=== PATIENT | female | born 1975 | race African-American/Black ===

== ENCOUNTER 2018-06-18 02:25 | Inpatient (IN) | payer MEDICAID ==
[2018-06-18] VITALS (7 sets, daily range): BP systolic 111–171; BP diastolic 66–102; Ht 160 cm; Wt 97.0 kg
[~2018-06-18] VITALS: Ht 160 cm; Wt 97.0 kg
--- NOTE | ~2018-06-18 | OP ---
PATIENT NAME: DIMITRI GARCIA MEDICAL RECORD: [id number] :77 LOCATION:D.M2 D.2120 ADMISSION DATE:06/18/18 SURGEON: TIFFANIE OSORIO MD DATE OF OPERATION: 06/20/2018 PROCEDURES: 1. Left heart catheterization. 2. Selective coronary angiography. 3. Left ventriculogram. INDICATION: Cardiomyopathy, angina, hypertension, elevated troponin. PROCEDURE IN DETAIL: After informed consent was obtained and after a detailed description of the risks, benefits as well as alternative therapies, the patient elected to proceed with angiogram and heart catheterization. The right femoral area was prepped and draped in normal sterile fashion. Right femoral artery was cannulated via modified Seldinger technique with placement of 5-Macedonian sheath. All catheters exchanged through this sheath. FINDINGS: Left ventriculogram performed in standard 30-degree SINGH view reveals markedly depressed ejection fraction of 25%. SELECTIVE CORONARY ANGIOGRAPHY: Left main, left anterior descending, left circumflex, right coronary are all smooth-walled vessels with no angiographic evidence of coronary artery disease. OVERALL IMPRESSION: Nonischemic cardiomyopathy. No evidence of coronary artery disease. Center medical management and treatment of the cardiomyopathy. TRANSINT:[id number] Voice Confirmation ID: [id number] DOCUMENT ID: [id number] TIFFANIE OSORIO MD at 1235 CC: [id number] DICTATION DATE: 06/20/18 172 HEATER PLANER OPERATOR: 06/20/182048 ADM IN [place] [id number] [place] [address]
--- NOTE | ~2018-06-18 | MORECARE ---
CASE MANAGEMENT DISCHARGE SUMMARY PATIENT: DIMITRI GARCIA UNIT: [id number] ADM DATE: 06/18/18 AGE: 43 : 76 SEX: F ROOM/BED: D.2120 AUTHOR: NO SMITH PHYSICIAN: REFERRING PHYSICIAN: FREEDOM MCINTOSH MD DATE OF SERVICE: 06/21/18 Discharge Plan Patient Name: DIMITRI GARCIA Facility: [facility]:[place] : 1975 Planned Disposition: Home Anticipated Discharge Date: 06/22/18 Discharge Date: Expected LOS: 4 Initial Reviewer: [email or web address] Initial Review Date: 06/21/2018 Generated: 06/21/18 4:42 pm DCPIA - Discharge Planning Initial Assessment Updated by [email or web address]: Wally Mathews on 06/21/18 3:38 pm * Is the patient Alert and Oriented? Yes * How many steps to enter\exit or inside your home? NONE * PCP DR. EBONY LAYNE [place] * Pharmacy [facility] [place] * Preadmission Environment Home with Family * ADLs Independent * Equipment None * Other Equipment NO MEDICAL EQUIPMENT PROVIDER PREFERENCE * List name and contact numbers for known caregivers / representatives who currently or will assist patient after discharge: DARRICK MEYER, AUNT, CELL [phone] OR HOME [phone] * Verbal permission to speak to the caregivers and representatives has been obtained from the patient. N/A * Community resources currently utilized None * Please name any agencies selected above. NONE * Additional services required to return to the preadmission environment? No * Can the patient safely return to the preadmission environment? Yes * Has this patient been hospitalized within the prior 30 days at any hospital? No Patient Name: DIMITRI GARCIA Page 74023 at 1542 All edits/amendments must be made on the electronic document DICTATION DATE: 06/21/181541 TECHNICAL SYSTEM ANALYST: AISHA 06/21/18 154 RPT#: [id number] DC DATE: STATUS: ADM IN [address] [place] [address] END OF REPORT
--- NOTE | ~2018-06-18 | EC ---
PATIENT:DIMITRI GARCIA DATE OF SERVICE: 06/18/18 SEX: F MEDICAL RECORD: [id number] DATE OF : [birth year] LOCATION:D. D.212 AGE OF PATIENT: 43 ADMISSION DATE: 06/18/18 REFERRING PHYSICIAN: INTERPRETING PHYSICIAN: RANDI BOWLING MD ECHOCARDIOGRAM REPORT ECHO CHARGES 4 ECHO COMPLETE Date: 06/18/18 CLINICAL DIAGNOSIS: CHF ECHOCARDIOGRAPHIC MEASUREMENTS (adult normal given) AC root (d.<3.7cm) 2.3 cm LV Septum d (<1.2 cm> 1.0 cm Valve Excursion 1.7 cm LV Septum (systole) 1.1 cm Left Atria (s.<4.0cm> 4.1 cm LVPW d(<1.2cm) 1.3 cm RV (d.<2.3cm) 3.0 cm LVPW (sytole) 1.7 cm LV diastole(<5.6CM) 5.9 cm MV E-F(>70mm/sec) cm LV systole 4.9 cm LVOT Diameter 1.8 cm MV exc.(>10mm) cm Est.ejection fraction (50-75%) % DOPPLER: LVIT cm/sec A 46 cm/sec E 117 cm/sec LA cm/sec RVSP 35.7 mmHg LVOT 124 cm/sec AOP1/2T m/s Asc. Ao 156 cm/sec RVOT 67 cm/sec RA cm/sec PA 89 cm/sec AV Gradient Peak 9.7 mmHg AV Mean 5.7 mmHg AV Area 2.0 cm MV Gradient Peak 7.7 mmHg MV Mean 3.0 mmHg MV Area cm COMMENTS: Nursing Educator: Benito MATAMOROS Senior Systems Programmer: 4 Dr. Bowling TAPE# Pericardial Effusion N DATE OF SERVICE: PROCEDURE: Transthoracic echocardiogram. FINDINGS: 1. The left ventricle is mildly dilated. There is evidence of left ventricular hypertrophy. Inflow characteristics shows pseudonormalization. The left ventricular cavity was difficult to visualize in its entirety. There appears to be slight wall motion abnormalities. The posterior and lateral left ventricle appeared to be hyperdynamic in certain segments. The anterior septal wall ECHOCARDIOGRAM REPORT [id number] DIMITRI GARCIA motion appears to be slightly hypokinetic. Resultant ejection fraction is mildly depressed in the 45% to 50% range. 2. The left atrium is mildly dilated. 3. The mitral valve is grossly normal. 4. The tricuspid valve has mild tricuspid regurgitation, RVSP of 35 mmHg. 5. The right ventricle is mildly dilated. 6. The right atrium is moderately dilated. 7. The pulmonic valve is not well visualized, but grossly normal. There is no pericardial effusion. There is no evidence of pericardial tamponade. There is no obvious thrombus. The interatrial septum does appear to be highly mobile, but there is no evidence of patent foramen ovale or an atrial septal defect. TRANSINT:[id number] Voice Confirmation ID: [id number] DOCUMENT ID: [id number] RANDI BOWLING MD at 0916 CC: [id number] DICTATION DATE: 06/19/1855 CHARGE WEIGHER: 06/19/18 1027 DIS IN 06/26/18 [facility] [address] [place] [address]
--- NOTE | ~2018-06-18 | MORECARE ---
CASE MANAGEMENT DISCHARGE SUMMARY PATIENT: DIMITRI GARCIA UNIT: [id number] ADM DATE: 06/18/18 AGE: 43 : 77 SEX: F ROOM/BED: D.5630 AUTHOR: LUISDOC PHYSICIAN: REFERRING PHYSICIAN: FREEDOM MCINTOSH MD DATE OF SERVICE: 06/26/18 Discharge Plan Patient Name: DIMITRI GARCIA Facility: [facility]:[place] : 1975 Planned Disposition: Home Anticipated Discharge Date: 06/22/18 Discharge Date: 06/26/2018 Expected LOS: 4 Initial Reviewer: [email or web address] Initial Review Date: 06/21/2018 Generated: 06/26/18 7:15 pm Comments DCP- Discharge Planning Updated by [email or web address]: Tessa She on 06/26/18 5:[address] PATIENT FOR DISCHARGE TO HOME THIS PM. CM REVIEWED DISCHARGE. SHE HAS NINE NEW MEDICATIONS ORDERED. SHE HAS [place] MED[place]ID. HER PCP IS DR EBONY LAYNE IN [place]. [facility] IS HER PHARMACY IN [place]. PATIENT MAY NEED EXTENSION OF MEDICAID SLOTS. DISCUSSED WITH HERNESTO, THE PRIMARY NURSE. THE PATIENT DOES NOT KNOW HOW MANY SLOTS SHE HAS. SHE DID NOT SEEM TO UNDERSTAND PER THE NURSE. HERNESTO WILL REVIEW DISCHARGE MEDS WITH THE FAMILY. CM WILL NOTIFY DR LAYNE'S OFFICE IN THE AM. WILL FAX DISCHARGE SUMMARY W/ MED LIST FOR HIS FOLLOW UP WITHNTHE PATIENT AND PHARMACY. DCP- Discharge Planning Updated by [email or web address]: Wally Mathews on 06/21/18 3:[address] Patient Name: DIMITRI GARCIA Admission Status: ER Accout number: [id number] Admission Date: 06-18-2018 : 1975 Admission Diagnosis: Attending: FREEDOM MCINTOSH Current LOS: 3 Anticipated DC Date: 06-22-2018 Planned Disposition: Home Primary Insurance: MEDICAID [place] Discharge Planning Comments: CM RECEIVED OXYGEN TESTING, PT WAS 99% AT REST ON ROOM AIR AND DROPPED TO 98% ON ROOM AIR DURING EXERTION. CM MET WITH PT IN ROOM TO DISCUSS DISCHARGE PLANNING AND NEEDS. PT REPORTS LIVING AT HOME INDEPENDENTLY WITH SPOUSE AND 10 YEAR OLD SON. PT HAS NO MEDICAL EQUIPMENT AND NO OUTSIDE SERVICES ASSISTING IN THE HOME. CM DISCUSSED AVAILABILITY OF HOME HEALTH, REHAB SERVICES AND MEDICAL EQUIPMENT. PT REPORTS BEING INDEPENDENT IN HOSPITAL ROOM AND UP TO BATHROOM NEEDED; PT DENIES DISCHARGE NEEDS AT THIS TIME, REPORTS SHE WILL TRY TO GET HER AUNT TO PICK HER UP FOR DISCHARGE HOME. PT PLANS TO DISCHARGE HOME WITH FAMILY, FAMILY TO TRANSPORT HOME; PT DENIES DISCHARGE NEEDS AT THIS TIME. CM TO FOLLOW AND ASSIST NEEDED. Chief Growth Officer: Wally Mathews DCPIA - Discharge Planning Initial Assessment Updated by [email or web address]: Wally Mathews on 06/21/18 3:38 pm * Is the patient Alert and Oriented? Yes * How many steps to enter\exit or inside your home? NONE * PCP DR. EBONY LAYNE [place] * Pharmacy [facility] IN [place] * Preadmission Environment Home with Family * ADLs Independent * Equipment None * Other Equipment NO MEDICAL EQUIPMENT PROVIDER PREFERENCE * List name and contact numbers for known caregivers / representatives who currently or will assist patient after discharge: DARRICK MEYER, AUNT, CELL [phone] OR HOME [phone] * Verbal permission to speak to the caregivers and representatives has been obtained from the patient. N/A * Community resources currently utilized None * Please name any agencies selected above. NONE * Additional services required to return to the preadmission environment? No * Can the patient safely return to the preadmission environment? Yes * Has this patient been hospitalized within the prior 30 days at any hospital? No Last DP export: 06/21/18 3:51 Patient Name: DIMITRI GARCIA Page 10564 at 1815 All edits/amendments must be made on the electronic document DICTATION DATE: 06/26/181814 CHEMISTRY RESEARCH ASSISTANT: AISHA 06/26/181814 RPT#: [id number] DC DATE:06/26/18 STATUS: DIS IN [facility] [address] [place] [address] END OF REPORT
--- NOTE | ~2018-06-18 | HEMODYNAMI ---
PATIENT:DIMITRI GARCIA MEDICAL RECORD: [id number] : 77 [id number] ADMISSION DATE: 06/18/18 Generatedon:06/20/201817:28 Patient name: DIMITRI GARCIA Patient #: [id number] SSN: : 1975 Date of study: 06/20/2018 Page: Of Hemodynamic Procedure Report Patient Data Patient Demographics Procedure consent was obtained First Name: DIMITRI Gender: Female Last Name: RADHA : 1975 Patient #: [id number] Age: 43 year(s) Race: Black Additional ID: [id number] Contact details Address: [address] [place] [address] [address]REET State: [place] City: [place] Zip code: [address] Admission Admission Data Admission Date: 06/18/2018 Admission Time: 3:57 Room #: D.2120 Procedure Procedure Types Cath Procedure Diagnostic Procedure LHC LHC w/Coronaries Procedure Description Procedure Date Procedure Date: 06/20/2018 Procedure Start Time: 17:11 Procedure End Time: 17:19 Procedure Staff Name Function Long Zepeda MD Performing Physician Veronica Clemons RT Monitor Eleni Byers RT Scrub Josh Woodward RN Nurse Procedure Data Cath Procedure Fluoroscopy Diagnostic fluoroscopy Total fluoroscopy Time: 0.7 time: 0.7 min min Diagnostic fluoroscopy Total fluoroscopy dose: 199 dose: 199 mGy mGy Contrast Material Contrast Material Type Amount (ml) Isovue 300 30 Entry Location Entry Primary Successful Side Size Upsize Upsize Entry Closure Succes sful Closure Location (Fr) 1 (Fr) 2 (Fr) Remarks Device Remarks Femoral Right 5 Fr Exoseal artery Estimated blood loss: 5 ml Diagnostic catheters Device Type Used For End Catheter Placement MULTIPACK Pigtail 5 Fr Multi-vessel catheter Angiography MULTIPACK JL 4.0 5Fr Left Coronary catheter Angiography MULTIPACK 3DRC 5Fr Right Coronary catheter Angiography Procedure Complications No complications Procedure Medications Medication Administration Route Dosage 0.9% NaCl I.V. 100 ml/hr Oxygen etCO2 Nasal cannula 2 l/min Lidocaine 2% added to field 20 Heparin Flush Bag added to field 2 bags (1000units/500ml NS) Versed I.V. 2 mg Fentanyl I.V. 100 mcg Lopressor I.V. 10 mg Versed I.V. 2 mg Versed I.V. 1 mg Hemodynamics Rest Heart Rate: 111 (bpm) Pressure Samples Time Site Value (mmHg) Purpose Heart Use Rate(bpm) 17:14 LV 28/2,7 Snapshot 121 Snapshots Pre Cath Intra NCS Post Cath Vital Signs Time Heart Resp SPO2 etCO2 NIBP (mmHg) Rhythm Pain Sedation Rate (ipm) (%) (mmHg) Status Level (bpm) 16:59:53 125 25 99 33 116/102(114) NSR 0 (11) 10(A) , No pain 17:06:16 124 42 99 33.7 117/103(115) NSR 0 (11) 10(A) , No pain 17:09:45 124 32 94 35.3 137/85(99) NSR 0 (11) 10(A) , No pain 17:13:57 122 23 95 35.3 128/101(111) NSR 0 (11) 10(A) , No pain 17:23:30 90 22 45 Time NSR 0 (11) 10(A) Exceeded , No pain 17:27:18 91 24 48.8 137/85(0) NSR 0 (11) 10(A) , No pain Medications Time Medication Route Dose Verified Delivered Reason Notes Eff ectiveness by by 16:44:15 0.9% NaCl I.V. 100 Longdemond Sageie used for ml/hr Katelyn Woodward RN procedure 16:44:24 Oxygen etCO2 2 Long Sageie used for Nasal l/min Katelyn Woodward RN procedure cannula 16:44:32 Lidocaine 2% added 20ml Long Alves for local to vial Katelyn Zepeda MD anesthetic field 16:44:36 Heparin Flush added 2 Long Long used for Bag to bags Katelyn Zepeda MD procedure (1000units/500ml field NS) 17:06:55 Versed I.V. 2 mg Long Sageie for Katelyn Woodward RN sedation 17:07:03 Fentanyl I.V. 100 Long Sageie for mcg Tauth MD Woodward RN sedation 17:11:59 Versed I.V. 2 mg Long Moreno for Katelyn Woodward RN sedation 17:15:21 Versed I.V. 1 mg Long Moreno for Katelyn Woodward RN sedation 17:16:49 Lopressor I.V. 10 mg Long Moreno Per Katelyn Woodward RN physician Procedure Log Time Note 16:34:49 Informed consent obtained and on chart 16:34:52 Diagnostic Cath Status : Elective 16:39:49 Eleni Zeeshan RT(R) sent for patient. Start room use. 16:39:50 Time tracking: Regular hours (M-F 7:00 - 5:00) 16:39:54 Plan of Care:Hemodynamics will remain stable., Cardiac rhythm will remain stable., Comfort level will be maintained., Respiratory function will remain adequate., Patient/ family verbilizes understanding of procedure., Procedure tolerated without complication., Recovers from procedure without complications.. 16:44:15 0.9% NaCl 100 ml/hr I.V. was administered by Josh Woodward RN; used for procedure; 16:44:24 Oxygen 2 l/min etCO2 Nasal cannula was administered by Josh Woodward RN; used for procedure; 16:44:32 Lidocaine 2% 20ml vial added to field was administered by Long Zepeda MD; for local anesthetic; 16:44:36 Heparin Flush Bag (1000units/500ml NS) 2 bags added to field was administered by Long Zepeda MD; used for procedure; 16:52:53 Warm blankets applied, and elodia hugger turned on for patient comfort. 16:52:53 Correct patient and procedure confirmed by team. 16:52:54 ECG and BP/O2 sat monitors applied to patient. 16:58:55 Vital chart was started 17:01:27 Baseline sample Acquired. 17:01:29 Full Disclosure recording started 17:01:32 H&P Date Dictated: 06/20/2018 New H&P dictated by physician.. 17:01:34 Pre-procedure instructions explained to patient. 17:01:34 Pre-op teaching completed and patient verbalized understanding. 17:01:36 Family in waiting room. 17:01:38 Patient NPO since Midnight. 17:01:39 Is the patient allergic to Iodine/contrast media? No. 17:01:40 Was the patient premedicated? No 17:01:41 Is patient on blood thinner?Yes 17:01:44 ACC The patient was administered the following blood thiners within the last 24 hours: ACCPlavix 17:01:51 Patient diabetic? No. 17:01:53 Previous problem with sedation/anesthesia? No ? 17:01:55 Snore? No 17:01:56 Sleep apnea? No 17:01:57 Deviated septum? No 17:01:58 Opens mouth fully? Yes 17:01:59 Sticks out tongue? Yes 17:02:00 Airway obstruction? No ? 17:02:03 Dentures? No ? 17:02:08 Pre procedure: right dorsailis pedis pulse 2+ Normal; easily identifiable; not easily obliterated 17:02:11 Pre procedure: left dorsailis pedis pulse 2+ Normal; easily identifiable; not easily obliterated 17:02:22 IV patent on arrival in right antecubital with 0.9% NaCl at [facility]. 17:02:26 Lab results completed and on chart. 17:02:35 Right groin area was prepped with chlora-prep and draped in sterile fashion 17:02:36 Alarms reviewed by R. N. 17:02:38 Sharps counted by scrub and verified by R.N. 17:03:24 Physician arrived 17:03:25 --------ALL STOP TIME OUT------ 17:03:25 Final Timeout: patient, procedure, and site verified with staff and physician. All members of the team are in agreement. 17:03:27 Right groin site verified by team. 17:03:29 Physical assessment completed. ASA score P 2 - A patient with mild systemic disease as per Long Zepeda MD. 17:03:32 Sedation plan: IV Moderate Sedation Medication:Versed, Fentanyl 17:03:36 Use device set Femoral Dx 17:03:38 ACIST Syringe (69097) opened to sterile field. 17:03:38 Bag Decanter () opened to sterile field. 17:03:39 Medline Cath Pack ([id number]) opened to sterile field. 17:03:39 DIAGNOSTIC WIRE .035 260cm J wire (526007) opened to sterile field. 17:03:40 ACIST Hand Control (48338) opened to sterile field. 17:03:41 ACIST Manifold (50816) opened to sterile field. 17:03:41 DIAGNOSTIC Multipack 5Fr catheter set (HM0356) opened to sterile field. 17:03:42 Tegaderm 4 x 4 (1626W) opened to sterile field. 17:03:43 SHEATH Prelude 5Fr 0.035 (ECR-9W-04-035) opened to sterile field. 17:06:55 Versed 2 mg I.V. was administered by Josh Woodward RN; for sedation; 17:07:03 Fentanyl 100 mcg I.V. was administered by Josh Woodward RN; for sedation; 17:08:55 Zero performed for pressure channel P1 17:11:47 Procedure started. 17:11:49 Local anesthetic to right femoral artery with Lidocaine 2% by Long Zepeda MD.INITIAL ACCESS ONLY 17:11:59 Versed 2 mg I.V. was administered by Josh Woodward RN; for sedation; 17:11:59 A 5 Fr sheath was inserted into the Right Femoral artery 17:13:33 A MULTIPACK Pigtail 5 Fr catheter was advanced over the wire and used for Multi-vessel Angiography. 17:14:40 LV hemodynamics recorded. 17:14:41 LV gram done using SINGH 17:14:44 Injector settings: Ml/sec: 5, Volume: 15, 17:15:07 EF : 25 % 17:15:16 Catheter removed. 17:15:20 A MULTIPACK JL 4.0 5Fr catheter was advanced over the wire and used for Left Coronary Angiography. 17:15:21 Versed 1 mg I.V. was administered by Josh Woodward RN; for sedation; 17:15:46 LCA angiography performed. 17:15:49 Injector settings: Ml/sec: 3, Volume: 6, 17:16:40 Catheter removed. 17:16:45 A MULTIPACK 3DRC 5Fr catheter was advanced over the wire and used for Right Coronary Angiography. 17:16:49 Lopressor 10 mg I.V. was administered by Josh Woodward RN; Per physician; 17:16:53 RCA angiography performed. 17:16:55 Injector settings: Ml/sec: 3, Volume: 6, 17:16:57 Catheter removed. 17:16:59 EXOSEAL 5Fr (EX500) opened to sterile field. 17:17:15 Sheath removed intact; hemostasis achieved with Exoseal to the Right Femoral artery. 17:17:17 Procedure ended.(Physican Out) 17:17:58 Fluoroscopy time 00.70 minutes. 17:18:09 Fluoroscopy dose: 199 mGy 17:18:09 Flurop Dose total: 199 17:18:17 Contrast amount:Isovue 300 30ml. 17:18:21 Sharps counted by scrub and verified by R.N. 17:18:21 Insertion/operative site no bleeding no hematoma. 17:18:25 Post-op/insertion site Right Femoral artery dressed using a 4 x 4 and Tegaderm. 17:18:28 Post right femoral artery:stable 17:18:29 Post Procedure Pulses reassessed and unchanged 17:18:32 Post procedure rhythm: unchanged. 17:18:35 Estimated blood loss: 5 ml 17:18:49 Post procedure instruction explained to patient.Patient verbalizes understanding. 17:18:49 Patient needs reinforcement of post procedure teaching. 17:19:05 Procedure and supply charges have been captured, reviewed, submitted and are correct. 17:19:10 Procedure Complication : No complications 17:19:13 Vital chart was stopped 17:19:13 See physician's report for complete and final results. 17:19:16 Report given to [place] [facility]. 17:19:19 Patient transfered to [place] [facility] with Stretcher. 17:19:21 Procedure ended. 17:19:21 Full Disclosure recording stopped 17:19:26 End room use (Document Last) Device Usage Item Name Manufacture Quantity Catalog Number Hospital Part Current M inimal Lot# / Charge Number Stock Stock Serial# Code ACIST Syringe Acist 1 24740 555026 637921 612679 2 0 (17618) [employer] Bag Decanter Microtek 1 697924 01947 035240 5 () Medical Inc. Medline Cath Medline 1 [id number] 092507 31386 569197 5 Pack ([id number]) DIAGNOSTIC WIRE St Obi 1 684536 898759 956141 162237 3 0 .035 260cm J wire (922584) ACIST Hand Acist 1 64411 245150 307175 133621 5 Control (01132) [employer] Inc ACIST Manifold Acist 1 92459 812498 689009 108157 5 (95209) [employer] Inc DIAGNOSTIC Cardinal 1 [id number] 357575 66057 698327 3 0 Multipack 5Fr Health catheter set ([id number]) Tegaderm 4 x 4 3M 1 1626W 844886 259020 071081 5 (1626W) SHEATH Prelude Merit 1 [id number] 348466 282393 142632 5 5Fr 0.035 Medical (AZR-[id number]-[id number]) MULTIPACK Cardinal 1 878262 5 Pigtail 5 Fr Health catheter MULTIPACK JL Cardinal 1 886186 5 4.0 5Fr Health catheter MULTIPACK 3DRC Cardinal 1 072645 5 5Fr catheter Health EXOSEAL 5Fr Cardinal 1 EX500 581986 964675 497126 1 0 (EX500) Health Signature Audit [place] Stage Time Signature Unsigned Intra-Procedure 06/20/2018 Veronica Clemons 5:28:09 PM RT(R) Signatures Monitor : Veronica Clemons RT Signature : Date : Time : [place] [id number] [place] [address]
--- NOTE | ~2018-06-18 | MORECARE ---
CASE MANAGEMENT DISCHARGE SUMMARY PATIENT: DIMITRI GARCIA UNIT: [id number] ADM DATE: 06/18/18 AGE: 43 : 77 SEX: F ROOM/BED: D.0314 AUTHOR: LUIS,DOC PHYSICIAN: REFERRING PHYSICIAN: FREEDOM MCINTOSH MD DATE OF SERVICE: 06/21/18 Discharge Plan Patient Name: DIMITRI GARCIA Facility: [facility]:[place] : 1975 Planned Disposition: Home Anticipated Discharge Date: 06/22/18 Discharge Date: Expected LOS: 4 Initial Reviewer: [email or web address] Initial Review Date: 06/21/2018 Generated: 06/21/18 4:51 pm Comments DCP- Discharge Planning Updated by [email or web address]: Wally Mathews on 06/21/18 2:[address] Patient Name: DIMITRI GARCIA Admission Status: ER Accout number: [id number] Admission Date: 06-18-2018 : 1975 Admission Diagnosis: Attending: FREEDOM MCINTOSH Current LOS: 3 Anticipated DC Date: 06-22-2018 Planned Disposition: Home Primary Insurance: MEDICAID [place] Discharge Planning Comments: CM RECEIVED OXYGEN TESTING, PT WAS 99% AT REST ON ROOM AIR AND DROPPED TO 98% ON ROOM AIR DURING EXERTION. CM MET WITH PT IN ROOM TO DISCUSS DISCHARGE PLANNING AND NEEDS. PT REPORTS LIVING AT HOME INDEPENDENTLY WITH SPOUSE AND 10 YEAR OLD SON. PT HAS NO MEDICAL EQUIPMENT AND NO OUTSIDE SERVICES ASSISTING IN THE HOME. CM DISCUSSED AVAILABILITY OF HOME HEALTH, REHAB SERVICES AND MEDICAL EQUIPMENT. PT REPORTS BEING INDEPENDENT IN HOSPITAL ROOM AND UP TO BATHROOM NEEDED; PT DENIES DISCHARGE NEEDS AT THIS TIME, REPORTS SHE WILL TRY TO GET HER AUNT TO PICK HER UP FOR DISCHARGE HOME. PT PLANS TO DISCHARGE HOME WITH FAMILY, FAMILY TO TRANSPORT HOME; PT DENIES DISCHARGE NEEDS AT THIS TIME. CM TO FOLLOW AND ASSIST NEEDED. Maintenance Assistant: Wally Mathews DCPIA - Discharge Planning Initial Assessment Updated by [email or web address]: Wally Mathwes on 06/21/18 3:38 pm * Is the patient Alert and Oriented? Yes * How many steps to enter\exit or inside your home? NONE * PCP DR. EBONY LAYNE [place] * Pharmacy [facility] IN [place] * Preadmission Environment Home with Family * ADLs Independent * Equipment None * Other Equipment NO MEDICAL EQUIPMENT PROVIDER PREFERENCE * List name and contact numbers for known caregivers / representatives who currently or will assist patient after discharge: DARRICK MEYER, AUNT, CELL [phone] OR HOME [phone] * Verbal permission to speak to the caregivers and representatives has been obtained from the patient. N/A * Community resources currently utilized None * Please name any agencies selected above. NONE * Additional services required to return to the preadmission environment? No * Can the patient safely return to the preadmission environment? Yes * Has this patient been hospitalized within the prior 30 days at any hospital? No Last DP export: 06/21/18 2:42 Patient Name: DIMITRI GARCIA Page 54076 at 1551 All edits/amendments must be made on the electronic document DICTATION DATE: 06/21/181550 COMMUNITY MANAGER: AISHA 06/21/181550 RPT#: [id number] DC DATE: STATUS: ADM IN [facility] [address] [place] [address] END OF REPORT
--- NOTE | ~2018-06-18 | MORECARE ---
CASE MANAGEMENT DISCHARGE SUMMARY PATIENT: DIMITRI GARCIA UNIT: [id number] ADM DATE: 06/18/18 AGE: 43 : 77 SEX: F ROOM/BED: D.6830 AUTHOR: LUISDOC PHYSICIAN: REFERRING PHYSICIAN: FREEDOM MCINTOSH MD DATE OF SERVICE: 06/27/18 Discharge Plan Patient Name: DIMITRI GARCIA Facility: [facility]:[place] : 1975 Planned Disposition: Home Anticipated Discharge Date: 06/26/18 Discharge Date: 06/26/2018 Expected LOS: 8 Initial Reviewer: [email or web address] Initial Review Date: 06/21/2018 Generated: 06/27/18 8:57 am Comments DCP- Discharge Planning Updated by [email or web address]: Tessabalaji Nowak on 06/26/18 5:[address] PATIENT FOR DISCHARGE TO HOME THIS PM. CM REVIEWED DISCHARGE. SHE HAS NINE NEW MEDICATIONS ORDERED. SHE HAS [place]ID. HER PCP IS DR EBONY LAYNE IN [place]. [facility] IS HER [facility]Y IN [place]. PATIENT MAY NEED EXTENSION OF MEDICAID SLOTS. DISCUSSED WITH HERNESTO, THE PRIMARY NURSE. THE PATIENT DOES NOT KNOW HOW MANY SLOTS SHE HAS. SHE DID NOT SEEM TO UNDERSTAND PER THE NURSE. HERNESTO WILL REVIEW DISCHARGE MEDS WITH THE FAMILY. CM WILL NOTIFY DR LAYNE'S OFFICE IN THE AM. WILL FAX DISCHARGE SUMMARY W/ MED LIST FOR HIS FOLLOW UP WITHNTHE PATIENT AND PHARMACY. DCP- Discharge Planning Updated by [email or web address]: Wally Mathews on 06/21/18 3:[address] Patient Name: DIMITRI GARCIA Admission Status: ER Accout number: [id number] Admission Date: 06-18-2018 : 1975 Admission Diagnosis: Attending: FREEDOM MCINTOSH Current LOS: 3 Anticipated DC Date: 06-22-2018 Planned Disposition: Home Primary Insurance: [place] Discharge Planning Comments: CM RECEIVED OXYGEN TESTING, PT WAS 99% AT REST ON ROOM AIR AND DROPPED TO 98% ON ROOM AIR DURING EXERTION. CM MET WITH PT IN ROOM TO DISCUSS DISCHARGE PLANNING AND NEEDS. PT REPORTS LIVING AT HOME INDEPENDENTLY WITH SPOUSE AND 10 YEAR OLD SON. PT HAS NO MEDICAL EQUIPMENT AND NO OUTSIDE SERVICES ASSISTING IN THE HOME. CM DISCUSSED AVAILABILITY OF HOME HEALTH, REHAB SERVICES AND MEDICAL EQUIPMENT. PT REPORTS BEING INDEPENDENT IN HOSPITAL ROOM AND UP TO BATHROOM NEEDED; PT DENIES DISCHARGE NEEDS AT THIS TIME, REPORTS SHE WILL TRY TO GET HER AUNT TO PICK HER UP FOR DISCHARGE HOME. PT PLANS TO DISCHARGE HOME WITH FAMILY, FAMILY TO TRANSPORT HOME; PT DENIES DISCHARGE NEEDS AT THIS TIME. CM TO FOLLOW AND ASSIST NEEDED. Chef Concierge: Wally Mathews DCPIA - Discharge Planning Initial Assessment Updated by [email or web address]: Wally Mathews on 06/21/18 3:38 pm * Is the patient Alert and Oriented? Yes * How many steps to enter\exit or inside your home? NONE * PCP DR. EBONY LAYNE [place] * Pharmacy [facility] IN [place] * Preadmission Environment Home with Family * ADLs Independent * Equipment None * Other Equipment NO MEDICAL EQUIPMENT PROVIDER PREFERENCE * List name and contact numbers for known caregivers / representatives who currently or will assist patient after discharge: DARRICK MEYER, AUNT, [place] [phone] OR HOME [phone] * Verbal permission to speak to the caregivers and representatives has been obtained from the patient. N/A * Community resources currently utilized None * Please name any agencies selected above. NONE * Additional services required to return to the preadmission environment? No * Can the patient safely return to the preadmission environment? Yes * Has this patient been hospitalized within the prior 30 days at any hospital? No Last DP export: 06/26/18 5:15 p Patient Name: DIMITRI GARCIA Page [id number] at 0757 All edits/amendments must be made on the electronic document DICTATION DATE: 06/27/18756 TRAVEL PHYSICAL THERAPIST: AISHA 06/27/18756 RPT#: [id number] DC DATE:06/26/18 STATUS: DIS IN [facility] [address] [place] [address] END OF REPORT
[2018-06-18] MEDS ORDERED: NORVASC10 MG PO (02:29)
[2018-06-18] MEDS ORDERED: PRINZIDE 20/12.1 TA1 PO (02:30)
[2018-06-18] MEDS ORDERED: ZOLOFT25 MG PO (02:35)
[2018-06-18 12:41] LABS: APPEARANCE HAZY (CLEAR); BILIRUBIN NEGATIVE (NEGATIVE); COLOR STRAW (YELLOW); GLUCOSE NEGATIVE (NEGATIVE); KETONE NEGATIVE (NEGATIVE); NITRITE NEGATIVE (NEGATIVE); PROTEIN NEGATIVE (NEGATIVE); SPECIFIC GRAVITY 1.005 (1.005-1.020); UROBILINOGEN NORMAL (NORMAL)
[2018-06-18 12:50] LABS: UDS - AMPHET NEGATIVE QUAL (NEGATIVE); UDS - BARB NEGATIVE QUAL (NEGATIVE); UDS - BENZO NEGATIVE QUAL (NEGATIVE); UDS - COCAINE NEGATIVE QUAL (NEGATIVE); UDS - OPIATE NEGATIVE QUAL (NEGATIVE); UDS - PCP NEGATIVE QUAL (NEGATIVE); UDS - THC NEGATIVE QUAL (NEGATIVE)
[2018-06-18 14:05] LABS: BASOPHILS 0.3 % (0-2); EOSINOPHILS 1.5 % (0-7); HEMATOCRIT 37.2 % (36.0-48.0); HEMOGLOBIN 11.8 g/dL (12-16); IMMATURE GRANULOCYTES 0.3 % (0-5); LYMPHOCYTES 10.7 % (15-50); MCH 22.6 pg (26.0-34.0); MCHC 31.7 g/dL (31.0-37.0); MCV 71.1 fL (80.0-100.0); MONOCYTES 12.1 % (2-11); NEUTROPHILS 75.1 % (40-80); PLATELET COUNT 216 10x3/uL (130-400); RBC 5.23 10x6/uL (4.00-5.40); RDW 17.1 % (11.5-14.5); WBC 11.3 10x3/uL (4.8-10.8)
[2018-06-18 14:13] LABS: APTT 30.2 SECONDS (22.8-39.4); INR 1.21 (0.85-1.17); PROTIME 14.8 SECONDS (11.6-15.0)
[2018-06-18 14:32] LABS: ALBUMIN 2.9 g/dL (3.4-5.0); ALKALINE PHOSPHATASE 64 U/L (46-116); ALT (SGPT) 44 U/L (10-68); BILIRUBIN - TOTAL 2.16 mg/dL (0.2-1.3); CALC OSMOLALITY 283 mosm/kg (275-300); CALCIUM 8.4 mg/dL (8.5-10.1); CARBON DIOXIDE 34.1 mmol/L (21.0-32.0); CHLORIDE - SERUM 103 mmol/L (98-107); CREATINE KINASE 78 UL (21-215); CREATININE - SERUM 0.9 mg/dL (0.6-1.3); GLUCOSE 122 mg/dL (74-106); MAGNESIUM - SERUM 1.6 mg/dL (1.8-2.4); POTASSIUM - SERUM 3.6 mmol/L (3.5-5.1); PRO BNP 6541 pg/mL (0-125); PROTEIN - SERUM 6.1 g/dL (6.4-8.2); SODIUM 143 mmol/L (136-145); UREA NITROGEN 6 mg/dL (7-18); eGFR NON AFRICAN AMERICAN 73 mL/min (90-120)
[2018-06-18 18:30] LABS: CKMB 1.1 U/L (0.0-3.6); CREATINE KINASE 93 UL (21-215); TROPONIN-I 0.052 ng/mL (0.000-0.060)
[2018-06-19 00:06] VITALS: BP 104/65
[2018-06-19 01:44] LABS: CKMB 0.8 U/L (0.0-3.6); CREATINE KINASE 70 UL (21-215)
[2018-06-19 04:00] VITALS: BP 115/70
[2018-06-19 07:53] VITALS: BP 113/93
[2018-06-19 12:02] VITALS: BP 116/65
[2018-06-19 15:35] VITALS: BP 125/70
[2018-06-19 20:08] LABS: CKMB 0.6 U/L (0.0-3.6); CREATINE KINASE 73 UL (21-215)
[2018-06-19 20:19] VITALS: BP 125/55
[2018-06-20] VITALS: BP 118/70
[2018-06-20 01:39] LABS: CKMB 0.6 U/L (0.0-3.6); CREATINE KINASE 47 UL (21-215); TROPONIN-I 0.044 ng/mL (0.000-0.060)
[2018-06-20 04:00] VITALS: BP 124/63
[2018-06-20 07:42] LABS: BASOPHILS 0.1 % (0-2); EOSINOPHILS 0.8 % (0-7); HEMATOCRIT 35.6 % (36.0-48.0); HEMOGLOBIN 11.4 g/dL (12-16); IMMATURE GRANULOCYTES 0.1 % (0-5); LYMPHOCYTES 13.7 % (15-50); MCH 22.9 pg (26.0-34.0); MCV 71.5 fL (80.0-100.0); MONOCYTES 13.9 % (2-11); NEUTROPHILS 71.4 % (40-80); PLATELET COUNT 198 10x3/uL (130-400); RBC 4.98 10x6/uL (4.00-5.40); RDW 17.2 % (11.5-14.5); WBC 13.4 10x3/uL (4.8-10.8)
[2018-06-20 08:05] LABS: CALC OSMOLALITY 277 mosm/kg (275-300); CALCIUM 8.2 mg/dL (8.5-10.1); CARBON DIOXIDE 33.9 mmol/L (21.0-32.0); CHLORIDE - SERUM 100 mmol/L (98-107); CKMB 0.2 U/L (0.0-3.6); CREATINE KINASE 42 UL (21-215); CREATININE - SERUM 0.9 mg/dL (0.6-1.3); GLUCOSE 95 mg/dL (74-106); POTASSIUM - SERUM 3.3 mmol/L (3.5-5.1); SODIUM 140 mmol/L (136-145); TROPONIN-I 0.043 ng/mL (0.000-0.060); eGFR NON AFRICAN AMERICAN 73 mL/min (90-120)
[2018-06-20 08:06] LABS: UREA NITROGEN 9 mg/dL (7-18)
[2018-06-20 08:15] VITALS: BP 156/77
[2018-06-20 12:29] VITALS: BP 111/60
[2018-06-20 15:49] VITALS: BP 133/91
[2018-06-20 16:58] LABS: HCG SERUM NEGATIVE (NEGATIVE)
[2018-06-20 18:00] LABS: THYROID STIMULATING HORMONE 4.32 uIU/mL (0.36-3.74)
[2018-06-20 20:27] VITALS: BP 122/83
[2018-06-21] VITALS: BP 114/75
[2018-06-21 05:56] LABS: BASOPHILS 0.1 % (0-2); EOSINOPHILS 0.9 % (0-7); HEMOGLOBIN 12.3 g/dL (12-16); IMMATURE GRANULOCYTES 0.3 % (0-5); LYMPHOCYTES 10.3 % (15-50); MCH 22.8 pg (26.0-34.0); MCHC 31.5 g/dL (31.0-37.0); MCV 72.2 fL (80.0-100.0); NEUTROPHILS 74.4 % (40-80); RDW 17.4 % (11.5-14.5); WBC 14.9 10x3/uL (4.8-10.8)
[2018-06-21 05:57] VITALS: BP 105/69
[2018-06-21 06:11] LABS: PLATELET COUNT 238 10x3/uL (130-400)
[2018-06-21 06:14] LABS: % SATURATION 5 % (15-55); ANION GAP 13.6 mmol/L (8-16); CALCIUM 8.6 mg/dL (8.5-10.1); CARBON DIOXIDE 31.5 mmol/L (21.0-32.0); CREATININE - SERUM 1.1 mg/dL (0.6-1.3); IRON 21 ug/dl (35-150); POTASSIUM - SERUM 4.1 mmol/L (3.5-5.1); TOTAL IRON BIND CAPACITY 419 ug/dl (260-445); UNSAT IRON BIND CAPACITY 398 ug/dl (150-375)
[2018-06-21 11:17] LABS: ACLA - IGG AB <9 GPL U/mL (0-14); ACLA - IGM AB <9 MPL U/mL (0-12)
[2018-06-21 11:47] VITALS: BP 133/71
[2018-06-21 16:04] VITALS: BP 107/56
[2018-06-21 21:30] VITALS: BP 83/48
[2018-06-22 00:49] VITALS: BP 109/55
[2018-06-22 04:14] LABS: PROTEIN S - FREE 98 % (57-157); PROTEIN S - FUNCTIONAL 66 % (63-140); PROTEIN S - TOTAL 76 % (60-150)
[2018-06-22 06:20] LABS: BASOPHILS 0.1 % (0-2); EOSINOPHILS 0.4 % (0-7); HEMATOCRIT 35.8 % (36.0-48.0); HEMOGLOBIN 11.2 g/dL (12-16); IMMATURE GRANULOCYTES 0.3 % (0-5); LYMPHOCYTES 8.5 % (15-50); MCH 22.4 pg (26.0-34.0); MCHC 31.3 g/dL (31.0-37.0); MCV 71.7 fL (80.0-100.0); MONOCYTES 12.9 % (2-11); NEUTROPHILS 77.8 % (40-80); PLATELET COUNT 202 10x3/uL (130-400); RBC 4.99 10x6/uL (4.00-5.40); WBC 14.8 10x3/uL (4.8-10.8)
[2018-06-22 06:23] VITALS: BP 100/60
[2018-06-22 06:30] LABS: CALCIUM 8.5 mg/dL (8.5-10.1); CARBON DIOXIDE 31.2 mmol/L (21.0-32.0); CREATININE - SERUM 1.2 mg/dL (0.6-1.3); POTASSIUM - SERUM 4.2 mmol/L (3.5-5.1)
[2018-06-22] MEDS ORDERED: ELIQUIS5 MG PO ×2 (12:08→12:09)
[2018-06-22] MEDS ORDERED: COREG12.5 MG PO (12:10)
[2018-06-22] MEDS ORDERED: LISINOPRIL10 MG PO (12:10)
[2018-06-22] MEDS ORDERED: MUCINEX DM ER1 EAC1 PO (12:10)
[2018-06-22] MEDS ORDERED: LASIX40 MG PO (12:11)
[2018-06-22] MEDS ORDERED: SINGULAIR10 MG PO (12:11)
[2018-06-22 12:17] LABS: PROTEIN S - FREE 139 % (57-157); PROTEIN S - TOTAL 73 % (60-150)
[2018-06-22 13:17] LABS: LUPUS - INTERPRETATION Comment: (()); LUPUS - THROMBIN TIME 17.8 sec (0.0-23.0); PTT-LA 50.6 sec (0.0-51.9)
[2018-06-22 13:19] VITALS: BP 90/63
[2018-06-22 16:36] VITALS: BP 74/50
[2018-06-22 20:00] VITALS: BP 94/69
[2018-06-23 04:00] VITALS: BP 96/62
[2018-06-23 05:00] LABS: BASOPHILS 0.1 % (0-2); EOSINOPHILS 0.3 % (0-7); HEMATOCRIT 33.8 % (36.0-48.0); HEMOGLOBIN 10.7 g/dL (12-16); IMMATURE GRANULOCYTES 0.2 % (0-5); LYMPHOCYTES 10.8 % (15-50); MCH 22.5 pg (26.0-34.0); MCHC 31.7 g/dL (31.0-37.0); MCV 71.2 fL (80.0-100.0); MONOCYTES 12.1 % (2-11); NEUTROPHILS 76.5 % (40-80); PLATELET COUNT 184 10x3/uL (130-400); RBC 4.75 10x6/uL (4.00-5.40); RDW 16.7 % (11.5-14.5); WBC 14.4 10x3/uL (4.8-10.8)
[2018-06-23 05:28] LABS: CALCIUM 8.1 mg/dL (8.5-10.1); CARBON DIOXIDE 30.7 mmol/L (21.0-32.0); CREATININE - SERUM 1.3 mg/dL (0.6-1.3); POTASSIUM - SERUM 4.7 mmol/L (3.5-5.1)
[2018-06-23 16:56] VITALS: BP 94/62
[2018-06-23 20:45] VITALS: BP 97/64
[2018-06-23 22:07] LABS: IMMUNOGLOBULIN E 1641 IU/mL (0-100)
[2018-06-24] VITALS: BP 89/66
[2018-06-24 04:00] VITALS: BP 125/70
[2018-06-24 05:31] LABS: BASOPHILS 0.2 % (0-2); EOSINOPHILS 0.3 % (0-7); HEMATOCRIT 34.5 % (36.0-48.0); HEMOGLOBIN 10.8 g/dL (12-16); IMMATURE GRANULOCYTES 0.3 % (0-5); LYMPHOCYTES 11.2 % (15-50); MCH 22.5 pg (26.0-34.0); MCHC 31.3 g/dL (31.0-37.0); MCV 71.7 fL (80.0-100.0); MONOCYTES 13.9 % (2-11); NEUTROPHILS 74.1 % (40-80); PLATELET COUNT 211 10x3/uL (130-400); RBC 4.81 10x6/uL (4.00-5.40); RDW 16.6 % (11.5-14.5); WBC 11.9 10x3/uL (4.8-10.8)
[2018-06-24 05:34] LABS: ANION GAP 13.8 mmol/L (8-16); CALCIUM 8.9 mg/dL (8.5-10.1); CARBON DIOXIDE 26.7 mmol/L (21.0-32.0); POTASSIUM - SERUM 4.5 mmol/L (3.5-5.1)
[2018-06-24 08:07] VITALS: BP 106/60
[2018-06-24 08:19] LABS: PROTEIN C - ANTIGEN 66 % (60-150); PROTEIN C - FUNCTIONAL 81 % (73-180)
[2018-06-24 11:44] VITALS: BP 98/63
[2018-06-24 15:40] VITALS: BP 115/69
[2018-06-24 21:36] VITALS: BP 97/52
[2018-06-25 01:42] VITALS: BP 98/65
[2018-06-25 06:34] VITALS: BP 100/68
[2018-06-25 07:58] VITALS: BP 112/66
[2018-06-25 12:05] VITALS: BP 110/79
[2018-06-25 12:12] LABS: CALCIUM 9.2 mg/dL (8.5-10.1); CARBON DIOXIDE 27.6 mmol/L (21.0-32.0); CREATININE - SERUM 0.9 mg/dL (0.6-1.3); POTASSIUM - SERUM 4.6 mmol/L (3.5-5.1)
[2018-06-25 12:23] LABS: BASOPHILS 0.4 % (0-2); EOSINOPHILS 1.2 % (0-7); HEMATOCRIT 35.2 % (36.0-48.0); IMMATURE GRANULOCYTES 0.2 % (0-5); LYMPHOCYTES 12.8 % (15-50); MCH 22.4 pg (26.0-34.0); MCHC 31.3 g/dL (31.0-37.0); MCV 71.5 fL (80.0-100.0); NEUTROPHILS 73.4 % (40-80); PLATELET COUNT 222 10x3/uL (130-400); RBC 4.92 10x6/uL (4.00-5.40); RDW 16.6 % (11.5-14.5)
[2018-06-25 15:53] VITALS: BP 119/73
[2018-06-25 20:37] VITALS: BP 120/69
[2018-06-26 01:17] VITALS: BP 111/70
[2018-06-26 06:03] LABS: BASOPHILS 0.1 % (0-2); EOSINOPHILS 1.6 % (0-7); HEMOGLOBIN 11.5 g/dL (12-16); IMMATURE GRANULOCYTES 0.1 % (0-5); LYMPHOCYTES 16.5 % (15-50); MCH 22.3 pg (26.0-34.0); MCHC 31.1 g/dL (31.0-37.0); MCV 71.8 fL (80.0-100.0); MONOCYTES 11.9 % (2-11); NEUTROPHILS 69.8 % (40-80); RBC 5.15 10x6/uL (4.00-5.40); RDW 16.4 % (11.5-14.5); WBC 7.3 10x3/uL (4.8-10.8)
[2018-06-26 06:05] LABS: PLATELET COUNT 109 10x3/uL (130-400)
[2018-06-26 06:16] LABS: CALC OSMOLALITY 276 mosm/kg (275-300); CALCIUM 9.1 mg/dL (8.5-10.1); CARBON DIOXIDE 29.1 mmol/L (21.0-32.0); CHLORIDE - SERUM 103 mmol/L (98-107); CREATININE - SERUM 0.8 mg/dL (0.6-1.3); GLUCOSE 93 mg/dL (74-106); SODIUM 139 mmol/L (136-145); UREA NITROGEN 11 mg/dL (7-18); eGFR NON AFRICAN AMERICAN 83 mL/min (90-120)
[2018-06-26 06:21] VITALS: BP 132/76
[2018-06-26 07:59] VITALS: BP 121/74
[2018-06-26] MEDS ORDERED: LEVAQUIN750 MG PO (10:17)
[2018-06-26] MEDS ORDERED: ELIQUIS5 MG PO (10:19)
[2018-06-26] MEDS ORDERED: K-DUR20 MEQ PO (10:23)
[2018-06-26] MEDS ORDERED: COREG6.25 MG PO (10:23)
[2018-06-26] MEDS ORDERED: FLORAJEN3 CAPS460 MG PO (10:23)
[2018-06-26 12:06] VITALS: BP 130/79
[2018-06-27 18:08] LABS: FACTOR II DNA ANALYSIS Negative (())
== END 2018-06-26 17:34 | disposition home or self-care (01) | DRG 286 ==
LOC: D.ER 02:25 → D.M2 03:57
PROVIDERS: Family Medicine; Internal Medicine Cardiovascular Disease; Internal Medicine Interventional Cardiology; Internal Medicine Nephrology; Internal Medicine Pulmonary Disease
PROC: B2151ZZ Fluoroscopy of Left Heart using Low Osmolar Contrast (ICD-10-PCS; 2018-06-20)
PROC: 4A023N7 Measurement of Cardiac Sampling and Pressure, Left Heart, Percutaneous Approach (ICD-10-PCS; 2018-06-20)
PROC: B2111ZZ Fluoroscopy of Multiple Coronary Arteries using Low Osmolar Contrast (ICD-10-PCS; principal; 2018-06-20 15:00)
DX: I42.9 Cardiomyopathy, unspecified (principal); I26.99 Other pulmonary embolism without acute cor pulmonale; I50.21 Acute systolic (congestive) heart failure; J96.01 Acute respiratory failure with hypoxia; Z68.41 Body mass index [BMI] 40.0-44.9, adult; F31.30 Bipolar disorder, current episode depressed, mild or moderate severity, unspecified; E66.01 Morbid (severe) obesity due to excess calories; J30.9 Allergic rhinitis, unspecified; I11.0 Hypertensive heart disease with heart failure; I07.1 Rheumatic tricuspid insufficiency; D64.9 Anemia, unspecified